=== PATIENT | female | born 1960 | race Caucasian/White ===

== ENCOUNTER 2024-10-08 12:27 | Emergency (ER) | payer BC, SELFPAY ==
[2024-10-08 12:34] VITALS: BP 163/87
[2024-10-08 13:00] LABS: % Basophils 0.5 % (0-2); % Eosinophils 0.5 % (0-6); % Immature Granulocytes 0.1 % (0-0.5); % Lymphocytes 37.3 % (20.5-51.1); % Neutrophils 53.6 % (42.2-75.2); Absolute Lymphocytes 2.9 10^3/uL (1.2-3.4); Absolute Monocytes 0.6 10^3/uL (0.1-0.6); Absolute Neutrophils 4.1 10^3/uL (1.4-6.5); Hematocrit 44.9 % (37.0-47.0); Mean Corp Hgb Conc. 33.4 g/dL (33.0-37.0); Mean Corpuscular Hgb 30.6 pg (27.0-31.0); Mean Corpuscular Volume 91.6 fL (81.0-99.0); Mean Platelet Volume 11.7 fL (7.4-10.4); Nucleated Red Blood Cells % 0 %; Platelet Count 298 10^3/uL (130-400); Red Cell Dist. Width 13.7 % (11.5-14.5); White Blood Cell Count 7.7 10^3/uL (4.8-10.8)
[2024-10-08 13:12] LABS: ALT (SGPT) 21 U/L (0-35); AST (SGOT) 22 U/L (14-36); Albumin 4.9 g/dl (3.5-5.0); Alkaline Phosphatase 106 U/L (38-126); Blood Urea Nitrogen 14 mg/dl (7-17); Calcium 10.2 mg/dl (8.4-10.2); Carbon Dioxide 31 mmol/L (22-30); Chloride 104 mmol/L (98-107); Glucose 130 mg/dl (70-99); Lipase 53 U/L (23-300); Potassium 4.5 mmol/L (3.5-5.1); Sodium 140 mmol/L (135-145); Total Bilirubin 1.2 mg/dl (0.2-1.3); Total Protein 8.3 g/dl (6.3-8.2); eGFR > 60.00
[2024-10-08 13:30] LABS: Urine Albumin Negative (Neg - Trace); Urine Bilirubin Negative (Negative); Urine Character Clear (Clear); Urine Color Yellow; Urine Glucose Negative (Negative); Urine Ketone Negative (Negative); Urine Leukocyte Negative (Negative); Urine Nitrite Negative (Negative); Urine Occult Blood 1+ (Negative); Urine Specific Gravity 1.015 (<1.030); Urine Urobilinogen Negative (Neg - 1+)
--- NOTE | 2024-10-08 13:58 | ED.GENMED ---
History of Present Illness
General
Chief Complaint: Abdominal Pain
Time Seen by Provider: 10/08/24 13:58
History of Present Illness
History of Present Illness:
TIME OF INITIAL ENCOUNTER: 2 PM
HPI: Patient presents with abdominal pain primarily localized to the right lower and right flank region. The patient pain comes and goes. It started this morning after she woke up. There is no nausea, no fevers. No other symptoms. She states
that many years ago she had an ovarian cyst.
EXAM:
GENERAL: Well appearing in no distress
HEENT: Moist oral mucosa
CARDIOVASCULAR: No murmurs, normal heart rate, regular rhythm, No chest wall tenderness
PULMONARY: No respiratory distress, breath sounds are clear and equal
ABDOMEN: Soft with no peritoneal signs, no tenderness, no significant CVA tenderness
NEUROLOGIC: Excellent strength all extremities, no coordination deficits
PSYCHIATRIC: Appropriate mental status, normal insight and judgement
EXTREMITIES: Nontender, no edema, moves all extremities equally
SKIN: No rash, no lesions
NUMBER AND COMPLEXITY OF PROBLEMS ADDRESSED AT THE ENCOUNTER
� Chronic conditions affecting care: Crohn's, IBS, vertigo
� Acute Exacerbation and/or Progression of Chronic Illness: This is an acute problem
� Differential Diagnosis includes: Ureteral stone, oblique muscle strain, ovarian cyst less like
AMOUNT AND/OR COMPLEXITY OF DATA TO BE REVIEWED AND ANALYZED
� I performed an independent evaluation of and my interpretation is:
EKG:
CT: CT imaging reviewed with patient�multiple large liver cysts noted
X-rays:
Laboratory Studies: White count and hemoglobin are normal, chemistries unremarkable, lipase and LFTs normal, urinalysis shows 1+ blood
Other:
� Review of other/old records: No old records available for review in [facility]
� Clinical information was obtained by an independent historian: Spoke to at bedside
� Prescriptions/Medications Considered but not given:
� Further testing considered but not performed:
RISK OF COMPLICATIONS AND/OR MORBIDITY OR MORTALITY OF PATIENT MANAGEMENT
� Social determinants of health affecting care: Lives at home
� Discussion with other providers:
� Escalation of care including admission/observation vs risk of discharge considered: Given the acute onset unilateral pain, CT finding obtained to evaluate for stone. There is also 1+ blood in the urinalysis but there is no
sign of infection. Labs are normal.
ANY OTHER UPDATES:
6:30 PM: I reassessed patient. The patient did receive 2 rounds of Toradol. She appears very comfortable on reassessment. She states that she has had some abnormal slightly elevated alk phos levels for which she was recommended have an ultrasound
however there is no biliary ductal abnormality on CT imaging and her alk phos and other LFTs are normal today.
Phy Exam
Physical Exam
Physical Exam:
See HPI
Course
Orders/Labs/Results
Orders:
Orders
10/08/24 12:41
Complete Blood Count/With Diff Urgent
Comprehensive Metabolic Panel Urgent
Lipase Urgent
10/08/24 12:45
Urinalysis Reflex To Culture Urgent
Date Specimen was Collected: 10/08/24
Time Specimen was Collected: 12:36
Urine Microscopic Reflex Cult Urgent
10/08/24 14:04
CT Abd/pel Without Iv Or Oral Urgent
Comment:
Reason For Exam: R flank /abd pain acute
Ketorolac [Toradol] 15 mg IV NOW STA
10/08/24 14:05
0.9% Sodium Chloride 1000 ml [Nss] 1,000 ml IV BOLUS
10/08/24 17:38
Ketorolac [Toradol] 15 mg IV NOW STA
Abnormal Lab Results
10/08/24 10/08/24
12:41 12:45
MPV 11.7 H fL
(7.4-10.4)
Carbon Dioxide 31 H mmol/L
(22-30)
Glucose 130 H mg/dl
(70-99)
Total Protein 8.3 H g/dl
(6.3-8.2)
Ur Occult Blood Reflex 1+ A
(Negative)
10/08/24 12:41
10/08/24 12:41
Vital Signs
Initial and Last Documented VS:
Initial Vital Signs
Temp Pulse Resp BP Pulse Ox
36.5 C 77 18 163/87 99
10/08/24 12:34 10/08/24 12:34 10/08/24 12:34 10/08/24 12:34 10/08/24 12:34
Last Documented Vital Signs
Temp Pulse Resp BP Pulse Ox
36.5 C 77 18 128/61 98
10/08/24 12:34 10/08/24 12:34 10/08/24 12:34 10/08/24 16:00 10/08/24 15:36
*Critical Care Note
Total Time (30-74mins, 75-104mins- exclusive of procedures): Not Applicable
ED Attending Note
-
Portions of this chart may have been created with voice recognition software.� Occasional wrong word or��sound alike� substitutions may have occurred due to the inherent limitations of voice recognition software.
Discharge Plan
Departure
Patient Disposition: Home (Routine Discharge)
Date of Disposition: 10/08/24
Time of Disposition: 18:25
Patient with high blood pressure during this ER visit?: Yes
Discharge Problem:
Abdominal pain
Instructions: Abdominal Pain, BLOOD PRESSURE
Referrals:
Mariah Law NP [Family Provider] -
Activity Restrictions/Additional Instructions:
The cause of your pain is unclear. Basic blood work is normal. I gave you a copy of your abdominal CT results. There was a tiny amount of blood in the urine. Liver and kidney functions are normal.
Interventions
Interventions:
*Risk Screen - Suicide Last Done: 10/08/24 12:32
*General Assessment Last Done: 10/08/24 12:32
*Neglect/Abuse Screening Last Done: 10/08/24 12:32
*ED- Fall Risk Assessment Last Done: 10/08/24 14:14
*ED COVID-19 Vaccine History Last Done: 10/08/24 14:14
CQ-Ljmlbl-Wzqmhvnvbl Assessment Last Done: 10/08/24 14:14
Discharge Date and Time
Print Language: KITTITIAN
[2024-10-08 14:14] VITALS: BMI 31.4
[2024-10-08 14:16] VITALS: BP 140/82
[2024-10-08] MEDS: TORADOL 15 MG IV ×2 (14:22→17:41)
[2024-10-08] MEDS: NSS 1000 IV (14:23)
[2024-10-08 14:27] LABS: Urine Amorphous Seen; Urine Red Blood Cell 0-2 /HPF (0-2); Urine Squamous Cell 0-2 /LPF (Few); Urine White Cell 0-2 /HPF (0-5)
[2024-10-08 15:00] VITALS: BP 133/65
[2024-10-08 16:00] VITALS: BP 128/61
[2024-10-08 17:37] VITALS: BP 135/69
[2024-10-08 18:54] VITALS: BP 132/80
--- NOTE | 2024-10-08 19:00 | EDRN ---
Discharge instructions reviewed with patient. Verbalized understanding.
== END 2024-10-08 19:10 | disposition home or self-care (01) ==
LOC: EMR 12:27
PROVIDERS: Emergency Medicine; EMERGENCY PHYSICIAN Emergency Medicine; FAMILY PHYSICIAN Nurse Practitioner Adult Health
DX: R10.31 Right lower quadrant pain (principal); K76.89 Other specified diseases of liver; K50.90 Crohn's disease, unspecified, without complications
CPT/HCPCS: 96374; 96376; 96361; 99284; 74176; 80053; 81003; 81015; 83690; 85025

== ENCOUNTER → 2025-03-12 09:50 | Outpatient (REF) | payer MEDICARE, OTHER, SELFPAY | LOC: WDC 09:50 | PROVIDERS: ATTENDING PHYSICIAN Nurse Practitioner Adult Health | DX: Z12.31 Encounter for screening mammogram for malignant neoplasm of breast (principal) | CPT/HCPCS: 77063; 77067 ==